=== PATIENT | male | born 1985 | race Caucasian/White ===

== ENCOUNTER 2016-08-25 09:28 | Day surgery (SDC) | payer OTHER ==
[2016-08-24 11:55] VITALS: BMI 23.5
[~2016-08-25] VITALS: Ht 172.7 cm; Wt 66.2 kg
[2016-08-25] VITALS (12 sets, daily range): BP systolic 102–148; BP diastolic 57–82; PULSE 54–90; RESP 16–35; Ht 172.7 cm; Wt 66.2 kg
[~2016-08-25 09:28] MED LIST: OLAN5TAB5 PO
[2016-08-25] MEDS ORDERED: FLUT9.9S NASAL (10:08)
[2016-08-25] MEDS ORDERED: LIDOCAINE 1%/EPI 30 ML INJ ONE (11:26)
[2016-08-25] MEDS ORDERED: COCAINE 4% 4 ML TOP ONE (11:27)
[2016-08-25] MEDS ORDERED: BACITRACIN/POLYMYXIN 28.35 GM OINT TOP ONE (11:27)
[2016-08-25] MEDS ORDERED: ONDANSETRON 4 MG INJ ONE (11:54)
[2016-08-25] MEDS ORDERED: PROPOFOL 20 ML ONE (11:54)
[2016-08-25] MEDS ORDERED: FENTAnyl 50 MCG/ML VIAL ONE (11:54)
[2016-08-25] MEDS ORDERED: ROCURONIUM 50 MG INJ ONE (11:54)
[2016-08-25] MEDS ORDERED: DEXAMETHASONE 4 MG/ML 1 ML INJ ONE (11:54)
[2016-08-25] MEDS ORDERED: MIDAZOLAM 1 MG/ML 2 ML INJ ONE (11:54)
[2016-08-25] MEDS ORDERED: CEFAZOLIN 1 GM INJ ONE (11:55)
--- NOTE | 2016-08-25 11:57 | HPN ---
Date/Time of Note Date/Time of Note DATE: 08/25/16 TIME: 11:57 Interval H&P Admission Note Pt. seen H&P reviewed: No system changes MARILEE PATTEN M.D. Aug 25, 2016 11:57
[2016-08-25] MEDS ORDERED: NEOSTIGMINE 3 MG/3 ML SYRINGE ONE (12:53)
[2016-08-25] MEDS ORDERED: GLYCOPYRROLATE 0.4 MG INJ ONE (12:53)
[2016-08-25] MEDS ORDERED: ONDANSETRON 4 MG INJ IV PRN (13:00)
[2016-08-25] MEDS ORDERED: MIDAZOLAM 1 MG/ML 2 ML INJ IV PRN (13:00)
[2016-08-25] MEDS ORDERED: morphine (1 MG/ML) 10ML SYRINGE IV PRN ×3 (13:00)
[2016-08-25] MEDS ORDERED: DIPHENHYDRAMINE 50 MG INJ IV PRN (13:00)
--- NOTE | 2016-08-25 13:37 | PDOCDIS ---
Discharge Instructions DIAGNOSIS Discharge Diagnosis: NASAL BONE FRACTUREE WITH DEVIATION. SEPTAL DEVIATION, BILATERAL NASAL TURB CONDITION Patient Condition: Good HOME CARE INSTRUCTIONS: Diet Instructions: Regular ACTIVITY: Activity Restrictions: Slowly Increase Activity Rest between Activity Avoid heavy lifting Avoid Heavy Housework Bathing Restrictions: Tub Bath FOLLOW UP/APPOINTMENTS Appointments [facility] OFF[facility] ON 09-01 SCHOOL/WORK RELEASE May return to School/Work on: Sep 02, 2016 MARILEE PATTEN M.D. Aug 25, 2016 13:37
--- NOTE | 2016-08-25 14:39 | OPR ---
DATE OF OPERATION: 08/25/2016 SURGEON: Nando Torres MD PREOPERATIVE DIAGNOSES: 1. Nasal bone fracture with deviation. 2. Septal deviation. 3. Cyst nasal turbinate tissue hypertrophy. POSTOPERATIVE DIAGNOSES: 1. Nasal bone fracture with septal deviation. 2. Septal deviation. 3. Nasal turbinate tissue hypertrophy. POSTOPERATIVE DIAGNOSES: 1. Nasal bone fracture with septal deviation. 2. Septal deviation. 3. Nasal turbinate tissue hypertrophy. OPERATION PERFORMED: 1. Open reduction internal fixation nasal bone fracture. 2. Septoplasty using submucosal resection technique. 3. Bilateral laser KTP 532 nanometer turbinoplasty procedure using submucosal resection technique. ESTIMATED BLOOD LOSS: Approximately 100 mL. COMPLICATIONS: No complications. SPECIMEN SENT TO LAB: Septal cartilage and bone for gross microscopic evaluation. ANESTHETIC USED: General anesthesia with orotracheal tube intubation using an oral Ambar type tube wi th a cuff. The patient also received 10 mL of 1% lidocaine with epinephrine 1:100,000 using a 23-ga uge spinal needle. This is one percent 1:100,000 solution. The patient also had topical cocaine us ing 4 mL using 4% solution. The patient also was given IV Ancef before the case was begun. FINDINGS DURING PROCEDURE: Left nasal bone deviation with a left nasal septal deflection. No signs of malignancies or tumors present during the procedure. 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 INDICATIONS: Mr. Jorge Espinoza is a 31-year-old male who has a history of nasal trauma with result ant nasal deformity. The patient has difficulties breathing through his nose and has tried topical nasal steroids which have met with failure. The patient continued to have nasal obstruction and on CT scan has been found to have anatomical deviation of his nasal structures is currently being consi dered for septoplasty and bilateral laser turbinoplasty procedure as indicated. The patient will al so undergo open reduction and internal fixation of his nasal bone fracture. Risks, benefits, and al ternatives have been explained thoroughly to Mr. Espinoza. He has understood these risks, benefits an d alternatives, signed a consent once his questions were answered. DESCRIPTION OF PROCEDURE: The patient was taken the operating room, placed on the surgical table in supine position, made comfortable by the anesthesiologist, Dr. Ambriz. The patient had EKG, satura tion monitoring and blood pressure cuff applied. At this point, the patient was then given an injec tion through previously started IV in the preinduction area. The patient's airway was then maintain ed and controlled with mask ventilatory support before he was successfully orotracheally intubated w ith orotracheal cuffed tube without any complications. The tube was taped to the left corner of the mouth as the eyes were taped for protection. At this point, the patient was draped out in usual st erile fashion using a split sheet as the table was locked and left in the midline. At this point, t he patient had a brief time-out with patient identification and procedure, and all were in agreement . The procedure was then continued by preparing the nose with an injection using 1% lidocaine with epinephrine 1:100,000 using a 23-gauge spinal needle. Injections to the septum, floor of the nose, a nd inferior turbinates bilaterally was then accomplished with the 23-gauge spinal needle. At this p oint, there was an injection on the lateral nasal dorsum through an intercartilage approach as well as the piriform apertures with this injection. At this point, the patient had cottonoids soaked wit h 4% cocaine placed in the anterior ethmoid and behind the middle turbinate areas. At this point, w hile this medicine was allowed for its maximal effect, a KTP 532 nanometer laser was then made ready at 8 centeno continuous power with the straight hand-held handpiece with suction attachment. At this point, all personnel in the operating room we were asked to place safety goggles on for their prote ction. Wet towels were then placed around the nose to protect it from the laser use and to prevent fire. At this point, the cottonoids were then removed from the nasal cavity as the left inferior tu rbinate was brought into direct visualization. Using a stabbing technique in a posterior direction the submucosal space was vaporized using the laser as the smoke was evacuated through the evacuator. At this point, the inferior turbinate was noted to shrink in size as a nasal speculum was then use d to lateralize the inferior turbinate back towards the medial wall of the maxillary sinus. This ga ve greater patency of the nasal cavity as the left and right inferior turbinates were reduced in siz e in the submucosal space. After reduction of the inferior nasal turbinates the septoplasty procedu re was performed using a #15 Bard-Chris sharp stainless steel blade. An incision along the anterio r septal margin was accomplished down to the mucosal lining down to the underlying perichondrium of the nasal septum. At this point, a Foster elevator was then used to elevate a mucoperichondrial fla p above the left side of the septum with care not to tear the flap. The hemitransfixion incision wa s then completed with the same #15 Bard-Chris sharp stainless steel blade to the right side. The C ottle elevator was then advanced to the right side where a right mucoperichondrial flap was elevated over the deviated cartilage. At this point, a Trent forcep was then used to remove the deviate d cartilage from between the 2 flaps with care again not to tear the flaps. At this point, the nasa l septum was noted to swing back towards the midline as a trap door technique was used to swing the remaining cartilage back towards the midline. At this point, the hemitransfixion incision was close d with the same 4-0 Vicryl suture in simple interrupted fashion and plication sutures to hold the mu cosal flaps together. At this point, the nasal dorsum was then evaluated in which the open reductio n portion of this procedure was started by making an intercartilage incision between the upper and l ower lateral cartilages and the nasal vestibule. This was done with a #15 Bard-Chris sharp stainle ss steel blade. Tenotomy scissors were then used to elevate the skin over the bony cartilage struct ures to skeletonize the nasal dorsum. At this point, a rasp was then used to remove any bony cartil age hump rasping it down to a level formation. At this point, osteotomies were performed using both medial and lateral osteotomies using an osteotome and a technique. This freed the nasal bone s and placed the dorsum back into the midline. At this point, Steri-Strips and benzoin were applied to the nasal dorsum as a thermal splint was applied to the nose and allowed to harden as the nose w as kept in a neutral position. Bacitracin ointment was then applied to the nose as a packing as a 4 x 4 was placed underneath the nose to catch any drainage. This ended the procedure. Sponge count and instrument count were correct x3. There were no complications during the procedure. The patien t was then extubated in the operating room and taken to recovery room and expects to be discharged h ome unless postoperative complications develop. Dictated By: NANDO PALOMO/MARK Conf#: [id number] DID#: [id number]
== END 2016-08-25 15:00 | disposition home or self-care (01) ==
LOC: SDS 09:28
PROVIDERS: ATTEND Otolaryngology Otolaryngology/Facial Plastic Surgery
DX: J34.2 Deviated nasal septum (principal); J34.3 Hypertrophy of nasal turbinates; Z87.891 Personal history of nicotine dependence
CPT/HCPCS: 30140; 30520; 88300; J0690; J1100; J2250; J2270; J2405; J2710; J3010; Z7512; Z7610